=== PATIENT | male | born 1980 | race Caucasian/White ===

== ENCOUNTER → 2020-02-15 | Emergency (ER) | payer OTHER ==
[~2020-02-15] VITALS: Ht 182.9 cm; Wt 104.3 kg
[~2020-02-15] MED LIST: NORCO 5-325 TA1 EAC2 PO
[2020-02-15 11:54] VITALS: BP 134/90
== END ==
LOC: M.ERS 11:45
DX: S46.212A Strain of muscle, fascia and tendon of other parts of biceps, left arm, initial encounter (principal); Z88.6 Allergy status to analgesic agent; X50.0XXA Overexertion from strenuous movement or load, initial encounter; Y93.89 Activity, other specified; Y92.89 Other specified places as the place of occurrence of the external cause; Y99.0 Civilian activity done for income or pay